=== PATIENT | female | born 1955 | race Caucasian/White ===

== ENCOUNTER 2018-04-18 17:03 | Emergency (ER) | payer MEDICARE ==
[~2018-04-18] VITALS: Ht 165.1 cm; Wt 77.1 kg
[2018-04-18] MEDS ORDERED: IV NORMAL SALINE 1000ML BAG 1,000 ML IV ONE ×2 (17:45→21:30)
[2018-04-18 18:44] LABS: BILIRUBIN,URINE SMALL (NEG); CLARITY,URINE CLEAR; COLOR,URINE YELLOW; NITRITE,URINE NEGATIVE (NEG); PH,URINE 5.5; PROTEIN,URINE 30 mg/dL (NEG-TRACE); UROBILINOGEN,URINE 0.2 mg/dL (0.2 mg/dL)
[2018-04-18 18:52] LABS: BACTERIA,URINE MODERATE /HPF (0-FEW); RBC,URINE OCC /HPF (0-2); SQUAMOUS EPITHELIAL CELL,UR MANY /LPF
--- NOTE | 2018-04-18 18:52 | RAD ---
PORTABLE CHEST 1V dated 04/18/2018 5:29 PM. Comparison: None. Clinical Indication: altered mental status. Findings: Single upright portable exam performed. Heart and mediastinal contours are within normal limits. Lungs are clear without focal consolidation. Vascular interstitium within normal limits. No pleural effusion or pneumothorax. Calcified granuloma right mid zone. Impression: Negative portable chest. Electronically signed by: Clarence Lees MD (04/18/2018 6:50 PM) [facility]
[2018-04-18 18:53] LABS: AMORPHOUS SEDIMENT,UR PRESENT /HPF; AMPHETAMINE/METHAMPHETAMINE POS (NEG); BARBITURATES NEG (NEG); BENZODIAZEPINES NEG (NEG); CANNABINOIDS NEG (NEG); COCAINE NEG (NEG); METHADONE NEG (NEG); OPIATES NEG (NEG); PHENCYCLIDINE NEG (NEG)
[2018-04-18 20:03] LABS: BASO % 0 % (0-3); EOS % 0 % (0-3); HEMATOCRIT 39.2 % (36.0-47.0); HEMOGLOBIN 13.5 g/dL (12.0-15.5); LYMPH # 1.4 x10^3/uL (1.0-4.8); LYMPH % 5 % (24-48); MEAN CORPUSCULAR HEMOGLOBIN 31 pg (25-35); MEAN CORPUSCULAR HGB CONC 35 g/dL (31-37); MEAN CORPUSCULAR VOLUME 88 fL (79-100); MONO # 1.7 x10^3/uL (0.0-1.1); MONO % 7 % (0-9); NEUT % 88 % (31-73); PLATELET COUNT 276 x10^3/uL (140-400); RED BLOOD COUNT 4.45 x10^6/uL (3.50-5.40); RED CELL DISTRIBUTION WIDTH 14.7 % (11.5-14.5); WHITE BLOOD COUNT 26.2 x10^3/uL (4.0-11.0)
[2018-04-18 20:29] LABS: % BANDS 1 % (0-9); % LYMPHS 4 % (24-48); % MONOS 7 % (0-10); % MYELOS 1 % (0-0); % SEGS 87 % (35-66)
[2018-04-18 20:31] LABS: PLT ESTIMATE ADEQUATE (ADEQUATE); TOXIC GRANULATION MOD
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
--- NOTE | 2018-04-18 21:00 | EKG ---
[facility] [address] [place] [address] Test Date: 2018-04-18 Test Time: 19:04:22 Pat Name: PEPE TURNER Department: Room: Gender: F [employer] Estimator: : 1955 Requested By: AMALIA BEST Order Number: [id number] Reading MD: Ha Aleman MD Measurements Intervals [place] Rate: 97 P: 75 IN: 126 QRS: 36 QRSD: 86 T: 14 QT: 324 QTc: 415 Interpretive Statements SINUS RHYTHM Electronically Signed On 04-19-2018 7:34:51 CDT by Ha Aleman MD
[2018-04-18 21:01] LABS: CALCIUM 9.4 mg/dL (8.5-10.1); CREATININE 1.6 mg/dL (0.6-1.0); GFR 32.8; POTASSIUM 3.5 mmol/L (3.5-5.1)
[2018-04-18 21:06] LABS: ALBUMIN 3.7 g/dL (3.4-5.0); ALBUMIN/GLOBULIN RATIO 1.1 (1.0-1.7); TOTAL BILIRUBIN 1.3 mg/dL (0.2-1.0); TOTAL PROTEIN 7.2 g/dL (6.4-8.2)
--- NOTE | 2018-04-18 22:59 | RAD ---
PQRS Compliance statement: One or more of the following individualized dose reduction techniques were utilized for this examination: 1. Automated exposure control. 2. Adjustment of the mA and/or kV according to patient size. 3. Use of iterative reconstruction technique. Indication:ams, no priors, difficulty cooperating
TECHNIQUE: CT head without IV contrast COMPARISON:None FINDINGS: No pathologic extra-axial or intra-axial fluid collection. The ventricles and basal cisterns are within normal limits. No acute intracranial bleed. No focal loss of johnson-white differentiation. Orbits within normal limits. No suspicious calvarial lesions. Visualized paranasal sinuses and mastoid air cells are clear. IMPRESSION: No acute intracranial process. If concern for acute ischemic stroke is high, please consider MRI brain. Electronically signed by: Damion Rosen DO (04/18/2018 10:56 PM) [facility]
[2018-04-18] MEDS ORDERED: fentaNYL PF VIAL 100 MCG/2 ML VIAL IV ONE (23:55)
[2018-04-19 00:30] VITALS: BP 124/70
== END 2018-04-19 00:32 | disposition short-term general hospital (02) ==
LOC: EEVIPCON 17:03 → ER 17:03
DX: N17.9 Acute kidney failure, unspecified (principal); S37.099A Other injury of unspecified kidney, initial encounter; R41.0 Disorientation, unspecified; E78.00 Pure hypercholesterolemia, unspecified; E03.9 Hypothyroidism, unspecified; G89.29 Other chronic pain; Z90.710 Acquired absence of both cervix and uterus; T76.21XA Adult sexual abuse, suspected, initial encounter; Y93.89 Activity, other specified; Y92.89 Other specified places as the place of occurrence of the external cause; Y99.8 Other external cause status
CPT/HCPCS: 36415; 70450; 71045; 80053; 80307; 81001; 82550; 82962; 85007; 85025; 87086; 93005; 96361; 96374; 99285; G0480; J3010; J7030; G0479